=== PATIENT | female | born 1960 | race Hispanic/Latino ===

== ENCOUNTER 2018-06-09 22:57 | Emergency (ER) | payer SELFPAY ==
--- NOTE | 2018-06-09 23:34 | RAD ---
RIGHT WRIST THREE VIEWS: INDICATIONS: Injury. Fall with pain over right wrist. FINDINGS: Slight cortical irregularity is present at the radial styloid, as well as at the distal radial articu lar surface, age indeterminate. Carpal alignment is maintained. No radiopaque foreign bodies. IMPRESSION: Slight cortical irregularity at the distal radius. Recommend clinical correlation. If there is pain in this region, consider CT of right wrist, noncont rast, for further anatomic delineation. POS: [facility]
--- NOTE | 2018-06-10 07:37 | CT ---
CT RIGHT WRIST: INDICATION: Pain, injury. FINDINGS: Subtle fracture deformity of the distal radius underlying the radial styloid is present. This is mor e pronounced at the dorsal aspect of the distal radial metaphyseal region. There is a curvilinear un derlying intramedullary lucency which approximates the articular surface and there is a subtle, minim ally dorsally located. Articular surface step-off of the distal radius approximately 1 mm. Carpal a lignment is maintained. The imaged distal ulna is intact. Mild soft tissue edema about the wrist is present. IMPRESSION: Essentially nondisplaced distal radial fracture with subtle dorsal articular surface involvement. POS: [facility]
== END 2018-06-10 01:06 | disposition home or self-care (01) ==
LOC: ERS 22:57
DX: S52.501A Unspecified fracture of the lower end of right radius, initial encounter for closed fracture (principal); W17.89XA Other fall from one level to another, initial encounter
CPT/HCPCS: 29125

== ENCOUNTER 2018-08-07 08:30 | Outpatient (CLI) | payer OTHER ==
--- NOTE | 2018-08-07 14:51 | MRI ---
MRI RIGHT WRIST WITHOUT CONTRAST: INDICATIONS: History of fall with right wrist pain. FINDINGS: The scapholunate and lunotriquetral ligaments appear intact. The visualized extrinsic ligaments appe ar intact. There has been some interval healing of the nondisplaced, mildly dorsally comminuted dist al radius fracture. Some mild residual edema remains within the metaphyseal region of the dorsal rad ius. Fracture lucency is less well defined than on the comparison CT dated 06/10/2018. The flexor a nd extensor tendons are normal appearing. The median and ulnar neurovasculature appear within normal limits. The scapholunate and lunotriquetral ligaments appear intact. The TFC appears intact. Ther e is a 7 mm synovial cyst involving the volar aspect of the ulnar carpal joint, best seen on image 12 of series 4 and on image 13 of series 8. No definite full-thickness tear is seen involving the TFC. Motion artifact slightly limits image detail. There is mild ulnar minus configuration at the DRUJ. IMPRESSION: 1. Some interval healing of the previously seen distal radius fracture. Some residual edema remains within the bone marrow of the dorsal radius. 2. No additional acute abnormalities seen. The triangular fibrocartilage complex appears intact. T here is mild ulnar minus configuration of the distal radio-ulnar joint. Motion artifact slightly em its image detail. 3. Small, volar synovial cyst involving the capsule of the ulnar carpal joint. POS: [facility]
== END 2018-08-07 08:31 | disposition home or self-care (01) ==
LOC: SCSMRI 08:30
PROVIDERS: ATTEND Orthopaedic Surgery Hand Surgery
DX: S63.8X1A Sprain of other part of right wrist and hand, initial encounter (principal); S69.81XA Other specified injuries of right wrist, hand and finger(s), initial encounter; R60.0 Localized edema; M71.331 Other bursal cyst, right wrist

== ENCOUNTER 2018-11-05 16:59 | Emergency (ER) | payer OTHER ==
[2018-11-05] MEDS ORDERED: HYDROcodone/Acetaminophen 5/325 mg Tablet ONE (17:51)
[2018-11-05] MEDS ORDERED: Ketorolac Tromethamine 30 MG/ML VIAL ONE (17:55)
--- NOTE | 2018-11-05 19:00 | RAD ---
LEFT WRIST RADIOGRAPHS THREE VIEWS: 11/05/18 PROVIDED CLINICAL HISTORY: Left wrist pain status post injury. FINDINGS: Extensively comminuted intra-articular distal radial fracture with mild displacement. Mildly displace d ulnar styloid fracture. No additional fracture is evident. IMPRESSION: Distal left radial and ulnar fractures as above. POS: [facility]
--- NOTE | 2018-11-05 19:03 | RAD ---
TWO VIEWS LEFT FOREARM 11/05/18 PROVIDED CLINICAL HISTORY: Pain status post injury. FINDINGS: Distal radial and ulnar fractures are described on concurrent left wrist series. Please see that repo rt. No additional fracture is evident. IMPRESSION: As above. POS: [facility]
== END 2018-11-05 18:56 | disposition home or self-care (01) ==
LOC: ERS 16:59
DX: S52.572A Other intraarticular fracture of lower end of left radius, initial encounter for closed fracture (principal); S52.612A Displaced fracture of left ulna styloid process, initial encounter for closed fracture; W11.XXXA Fall on and from ladder, initial encounter
CPT/HCPCS: 29125; 96372; J1885

== ENCOUNTER 2018-11-06 12:59 | Emergency (ER) | payer OTHER ==
[2018-11-06] MEDS ORDERED: HYDROcodone/Acetaminophen 5/325 mg Tablet ONE (15:02)
== END 2018-11-06 15:15 | disposition home or self-care (01) ==
LOC: ERS 12:59
DX: S52.572A Other intraarticular fracture of lower end of left radius, initial encounter for closed fracture (principal); S52.612A Displaced fracture of left ulna styloid process, initial encounter for closed fracture; W10.9XXA Fall (on) (from) unspecified stairs and steps, initial encounter
CPT/HCPCS: 99283

== ENCOUNTER 2018-12-15 09:19 | Inpatient (IN) | payer OTHER ==
[2018-12-08 15:28] VITALS: BMI 32.4
[2018-12-15 12:03] LABS: #Basophils 0.1 thou/uL (0.0-0.2); #Eosinphils 0.3 thou/uL (0.0-0.7); #Lymphocytes 1.9 thou/uL (1.20-3.40); #Monocytes 0.4 thou/uL (0.11-0.59); #Neutrophils 4.9 thou/uL (1.40-6.50); %Eosinophils 3.7 % (0.0-10.0); %Lymphocytes 25.4 % (21.0-51.0); %Monocytes 5.7 % (0.0-10.0); %Neutrophils 64.2 % (42.0-75.0); Hemoglobin 14.3 g/dL (12.0-16.0); Mean Corpuscular HGB CONC 31.9 g/dL (32.0-36.0); Mean Corpuscular Volume 97.1 fL (78.0-98.0); Mean Platelet Volume 8.6 fL (7.4-10.4); Platelet Count 329 thou/uL (130-400); RBC Distribution Width 11.6 % (11.5-14.5); Red Blood Cell (RBC) Count 4.63 mill/uL (4.20-5.40); White Blood Cell (WBC) Count 7.6 thou/uL (4.8-10.8)
[2018-12-15 12:24] LABS: Anion Gap 15 mmol/L (10-20); BUN (Urea Nitrogen) 24 mg/dL (9.8-20.1); Calc. Creatinine Clearance 100 mL/min (70-130); Calcium 9.9 mg/dL (7.8-10.44); Carbon Dioxide 21 mmol/L (22-29); Chloride 108 mmol/L (98-107); Estimated GFR-MDRD Greater than 90; Glucose 91 mg/dL (70-105); Potassium 4.7 mmol/L (3.5-5.1); Sodium 139 mmol/L (136-145)
[2018-12-15] MEDS ORDERED: Fentanyl 100 MCG/2 ML VIAL ONE ×5 (12:29→20:50)
[2018-12-15] MEDS ORDERED: Lidocaine 1% PF 5 ML VIAL ONE (14:53)
[2018-12-15] MEDS ORDERED: PROPOFOL 200 MG/20 ML VIAL ONE (14:53)
[2018-12-15] MEDS ORDERED: Dexamethasone 20 MG/5 ML VIAL ONE (14:53)
[2018-12-15] MEDS ORDERED: Ketorolac Tromethamine 30 MG/ML VIAL ONE (14:53)
[2018-12-15] MEDS ORDERED: Ondansetron PF 4 MG/2 ML Vial ONE (14:53)
[2018-12-15] MEDS ORDERED: Bupivacaine PF 0.5% 30 ML VIAL ONE ×2 (16:11→19:45)
[2018-12-15] MEDS ORDERED: Bacitracin Zinc Ointment 30 gm TUBE ONE (16:11)
[2018-12-15] MEDS ORDERED: Midazolam HCl 2 mg/2 ml Vial ONE (16:18)
--- NOTE | 2018-12-15 20:10 | RAD ---
FOUR FLUOROSCOPIC SPOT IMAGES OF THE LEFT WRIST: 12/15/18 INDICATION: ORIF of the left wrist. COMPARISON: Prior exam dated 11/05/18. FINDINGS: Since the comparison examination there has been interval operative fixation of the distal radius and ulnar styloid fractures. Fracture alignment is near anatomic. Instrumentation projects in the expecte d position. IMPRESSION: ORIF of left wrist fractures. POS: [facility]
[2018-12-15] MEDS ORDERED: Ondansetron HCl/PF 4 MG/2 ML Vial IVP PRN (20:22)
[2018-12-15] MEDS ORDERED: Promethazine HCl 25 MG/ML VIAL IM PRN (20:28)
[2018-12-15] MEDS ORDERED: Ondansetron PF 4 MG/2 ML Vial IV PRN (20:28)
[2018-12-15] MEDS ORDERED: Communication Order-Pharmacy FS SCH (20:30)
[2018-12-15] MEDS ORDERED: TETANUS AND DIPHTHERIA TOX/PF 0.5 ML DISP.SYRIN IM SCH (20:30)
[2018-12-15] MEDS ORDERED: Meperidine HCl/PF 25 MG/ML VIAL IM PRN (20:32)
[2018-12-15] MEDS ORDERED: Vancomycin HCl 1 GM in Premix Bag 1 BAG IVPB SCH (21:00)
[2018-12-15] MEDS: Ketorolac Tromethamine 30 MG/ML VIAL IVP SCH (23:14)
[2018-12-15] MEDS: Vancomycin HCl 750 MG in Sodium Chloride 0.9% 250 ML 250 ML IVPB SCH (23:14)
[2018-12-15] MEDS: Aspirin 81 mg Enteric Coated Tablet PO SCH (23:14)
[2018-12-15] MEDS: Acetaminophen 325 MG TAB PO PRN (23:17)
[2018-12-15] MEDS: traMADol HCl 50 MG TAB PO PRN (23:17)
[2018-12-16] MEDS: Ketorolac Tromethamine 30 MG/ML VIAL IVP SCH ×3 (05:46→17:47)
[2018-12-16] MEDS: traMADol HCl 50 MG TAB PO PRN ×3 (05:47→16:31)
[2018-12-16] MEDS: Acetaminophen 325 MG TAB PO PRN ×2 (05:47→14:20)
[2018-12-16 06:45] LABS: #Lymphocytes 1.3 thou/uL (1.20-3.40); #Monocytes 0.6 thou/uL (0.11-0.59); #Neutrophils 10.4 thou/uL (1.40-6.50); %Eosinophils 0.4 % (0.0-10.0); %Lymphocytes 10.2 % (21.0-51.0); %Monocytes 4.9 % (0.0-10.0); %Neutrophils 84.5 % (42.0-75.0); Hemoglobin 12.3 g/dL (12.0-16.0); Mean Corpuscular HGB CONC 32.9 g/dL (32.0-36.0); Mean Corpuscular Hemoglobin 30.6 pg (27.0-31.0); Mean Corpuscular Volume 92.8 fL (78.0-98.0); Mean Platelet Volume 9.9 fL (7.4-10.4); Platelet Count 207 thou/uL (130-400); RBC Distribution Width 11.2 % (11.5-14.5); Red Blood Cell (RBC) Count 4.02 mill/uL (4.20-5.40); White Blood Cell (WBC) Count 12.3 thou/uL (4.8-10.8)
[2018-12-16] MEDS: Aspirin 81 mg Enteric Coated Tablet PO SCH ×2 (09:49→20:09)
[2018-12-16] MEDS: Vancomycin HCl 750 MG in Sodium Chloride 0.9% 250 ML 250 ML IVPB SCH (12:20)
[2018-12-17] MEDS: Vancomycin HCl 750 MG in Sodium Chloride 0.9% 250 ML 250 ML IVPB SCH ×2 (00:40→13:24)
[2018-12-17] MEDS: Ketorolac Tromethamine 30 MG/ML VIAL IVP SCH (00:41)
[2018-12-17] MEDS: traMADol HCl 50 MG TAB PO PRN (07:16)
[2018-12-17] MEDS: Aspirin 81 mg Enteric Coated Tablet PO SCH ×2 (08:38→20:43)
[2018-12-17 10:10] LABS: #Basophils 0.1 thou/uL (0.0-0.2); #Eosinphils 0.2 thou/uL (0.0-0.7); #Lymphocytes 1.8 thou/uL (1.20-3.40); #Monocytes 0.4 thou/uL (0.11-0.59); #Neutrophils 4.8 thou/uL (1.40-6.50); %Basophils 0.7 % (0.0-1.0); %Eosinophils 2.6 % (0.0-10.0); %Lymphocytes 24.2 % (21.0-51.0); %Monocytes 6.1 % (0.0-10.0); %Neutrophils 66.4 % (42.0-75.0); Hemoglobin 12.7 g/dL (12.0-16.0); Mean Corpuscular HGB CONC 33.2 g/dL (32.0-36.0); Mean Corpuscular Hemoglobin 31.4 pg (27.0-31.0); Mean Corpuscular Volume 94.7 fL (78.0-98.0); Mean Platelet Volume 8.4 fL (7.4-10.4); Platelet Count 258 thou/uL (130-400); RBC Distribution Width 11.2 % (11.5-14.5); Red Blood Cell (RBC) Count 4.05 mill/uL (4.20-5.40); White Blood Cell (WBC) Count 7.3 thou/uL (4.8-10.8)
[2018-12-17 12:06] LABS: Vancomycin, Trough 8.5 ug/mL
[2018-12-17] MEDS ORDERED: Vancomycin HCl 1 GM in Premix Bag 1 BAG IVPB SCH (13:00)
[2018-12-17] MEDS: Acetaminophen 325 MG TAB PO PRN (13:43)
[2018-12-17] MEDS ORDERED: Promethazine HCl 25 MG/ML VIAL IM PRN (18:48)
[2018-12-17] MEDS ORDERED: traMADol HCl 50 MG TAB PO PRN (18:49)
[2018-12-17] MEDS: Pregabalin 50 MG CAP PO SCH (20:43)
[2018-12-17] MEDS: Sulfameth/Trimethoprim DS 800-160mg TAB PO SCH (20:44)
[2018-12-18] MEDS: Acetaminophen 325 MG TAB PO PRN (05:23)
[2018-12-18] MEDS: Aspirin 81 mg Enteric Coated Tablet PO SCH (08:57)
[2018-12-18] MEDS: Sulfameth/Trimethoprim DS 800-160mg TAB PO SCH (08:58)
[2018-12-18] MEDS: Pregabalin 50 MG CAP PO SCH (08:58)
[2018-12-18] MEDS ORDERED: Ondansetron ODT 4 MG TAB PO PRN (11:31)
[2018-12-18 15:32] VITALS: BP 159/76; TEMP 98.2
--- NOTE | 2018-12-21 09:16 | OP ---
DATE OF PROCEDURE: 12/15/2018 PREOPERATIVE DIAGNOSES: 1. Median nerve compression at the wrist with carpal tunnel symptoms. 2. Distal radius fracture, displaced. 3. Ulnar styloid fracture, displaced. FINDINGS: 1. Hematoma with a median nerve contusion in the proximal aspect of the carpal tunnel. 2. Displaced distal radius fracture with moderate amount of osteoporosis. 3. Ulnar styloid fracture displaced with triangular fibrocartilage attached to it, through type 3 base of the styloid fracture. PROCEDURES PERFORMED: 1. Open reduction, internal fixation of distal radius fracture, four parts. 2. Open reduction, internal fixation of left ulnar styloid fracture. 3. Forearm level median nerve neuroplasty. 4. Carpal tunnel release with median nerve neuroplasty at the wrist. TOURNIQUET TIME: 115 minutes. ESTIMATED BLOOD LOSS: 20 mL. DESCRIPTION OF PROCEDURE: After successful general anesthesia, the limb was prepped and draped. Time-out done appropriately. C-arm brought into the field. We identified the fracture and then limb was exsanguinated after time-out and the tourniquet inflated to 250 mmHg pressure. We then performed a standard zigzag incision over the flexor carpi radialis identify the fracture. We then went slightly ulnar to this and identified the median nerve in the entire area of the fracture, both 10 cm proximal and then we had an area of 2 cm with no incision beginning at the palmar flexion crease. We distally performed open carpal tunnel release by dissecting through transverse carpal ligament until we could visualize the median nerve. In the proximal aspect of the wrist incision, palmar, distal aspect of the forearm, there was a hematoma around the median nerve. The hematoma was then evacuated. There was only a small amount. Transcarpal ligament released completely. Now, we had freed the median nerve completely in the forearm and the wrist/hand. We turned attention back to the fracture, and performed a reduction where we elevated the fragment approximately 1 to 2 mm, and closed the intra-articular gap, and corrected the angulation sagittal plane to make it approximately 10 degrees palmar tilt. We then placed two K-wires from the styloid proximally, held this position. We brought into the field with Synthes distal radius fracture set, selected a four hole subarticular and four hole down the shaft plate because the fracture line extended approximately 2.5 cm proximally. We then placed this in with 4 screws distally to subarticular first, elevating the plate slightly and this allowed us to place additional 5 to 6 degrees of palmar tilt. Once we had done this and placed screws in the shaft, we checked position and was anatomical. We had restored 1.5 mm ulnar negative wrist where was preop ulnar positive. The fracture of the ulna even corrected by 50%. I released the tourniquet. We then noticed however that she has moderate osteoporosis and had to use locking screws distally. The patient had screw length confirmed to be adequate, the fracture was stable, and released the tourniquet for this part and we did not release the tourniquet initially for this closure of pronator interval with 2-0 Vicryl. We then made a midline incision over the ulna, carried through skin and subcutaneous tissue and identified the fracture. We saw this on the triangular fibrocartilage still on it, so we debrided the fracture, reduced it, and placed a [id number] heavy suture in the bone to hold it in position. We then placed Synthes low-profile ulna styloid plate with hook. Hook was buried and held it in position, we placed four screws in a standard drill measure in screw technique in the direct lateral plane. Radiographs confirmed near anatomic position for all fractures. The joint was well restored. We maintained distal ulnar joint with. We deflated the tourniquet. We closed distal radius wound with a running 4-0 Monocryl for deep dermis, subcutaneous and then epidermis/cutaneous with 4-0 nylon interrupted mattress pattern. We used 0 Vicryl to the fascia of the ulna in a running fashion, 4-0 Monocryl for subcutaneous deep dermal closure in a running fashion and interrupted simple, 4-0 nylon for the epidermal closure. The patient had a bulky dressing applied, a sugar-tong splint, left the operating room without evidence of anesthetic operative complication. Job ID: [id number]
== END 2018-12-18 16:52 | disposition home or self-care (01) | DRG 512 ==
LOC: SDC 09:19 → SURG B 20:28
PROVIDERS: ADMIT Orthopaedic Surgery Hand Surgery; ATTEND Orthopaedic Surgery Hand Surgery
PROC: 0PSJ04Z Reposition Left Radius with Internal Fixation Device, Open Approach (ICD-10-PCS; principal; 2018-12-15)
PROC: 0PSL04Z Reposition Left Ulna with Internal Fixation Device, Open Approach (ICD-10-PCS; 2018-12-15)
PROC: 01N50ZZ Release Median Nerve, Open Approach (ICD-10-PCS; 2018-12-15)
DX: S52.572A Other intraarticular fracture of lower end of left radius, initial encounter for closed fracture (principal); S52.612A Displaced fracture of left ulna styloid process, initial encounter for closed fracture; G56.02 Carpal tunnel syndrome, left upper limb; G89.18 Other acute postprocedural pain; M81.0 Age-related osteoporosis without current pathological fracture; W11.XXXA Fall on and from ladder, initial encounter; Y99.0 Civilian activity done for income or pay
CPT/HCPCS: 36415; 76000; 80048; 80202; 85025; C1713; J1100; J1885; J2001; J2175; J2250; J2405; J2704; J3010; J3370; J7050; Q0162; S0020

== ENCOUNTER 2019-02-11 07:44 | Outpatient (CLI) | payer OTHER ==
--- NOTE | 2019-02-11 09:21 | MRI ---
MRI LEFT SHOULDER: Date: 02/11/19 PROVIDED CLINICAL HISTORY: Shoulder pain. FINDINGS: There are several small foci of low grade partial thickness articular surface tearing involving the s upraspinatus tendon approximately 2.0 cm from the footplate. The components of the rotator cuff appea r otherwise intact. The long head biceps tendon appears intact and normally located. The glenoid labrum and glenohumeral articular cartilage are suboptimally evaluated in the absence of joint distention, but appear grossly normal. Acromioclavicular joint osteoarthrosis is demonstrated without significant mass effect upon the subja cent supraspinatus. Rotator cuff muscular volume appears preserved. No focal concerning regional uche ow or muscular signal abnormality is evident. There is a physiologic amount of fluid within the gleno humeral joint. There is a physiologic amount of subacromial subdeltoid bursal fluid. There is a mildl y indistinct and T2 hyperintense appearance to the inferior glenohumeral ligament. IMPRESSION: 1. Several small foci of low grade partial thickness undersurface tearing involving the supraspinatu s tendon. 2. Mildly thickened and T2 hyperintensity inferior glenohumeral ligament, which may reflect changes of adhesive capsulitis. 3. Mild acromioclavicular joint osteoarthrosis. POS: [facility]
--- NOTE | 2019-02-11 09:26 | MRI ---
MRI OF THE RIGHT SHOULDER: Date: 02-11-19 History: Right shoulder pain. FINDINGS: There is low grade partial thickness interstitial tearing involving the distal conjoined tendon near the foot plate. The component of the rotator cuff appear otherwise intact. The long-head biceps tendo n appears intact and normally located. The amount of fluid within the glenohumeral joint appears physiologic. The glenoid labrum and glenohu meral articular cartilage are suboptimally evaluated in the absence of joint distention but appear gr ossly normal. The amount of fluid within the subacromial subdeltoid bursa appears physiologic. Acromioclavicular daniel int osteoarthrosis is demonstrated with mild mass effect upon the subjacent supraspinatus. No focal concerning regional marrow or muscular signal abnormality is evident. IMPRESSION: 1. Low grade partial thickness interstitial tear involving the distal conjoined tendon. 2. Acromioclavicular joint osteoarthrosis. POS: [facility]
== END 2019-02-11 07:45 | disposition home or self-care (01) ==
LOC: BICMRI 07:44
PROVIDERS: ATTEND Orthopaedic Surgery Hand Surgery
DX: S46.012A Strain of muscle(s) and tendon(s) of the rotator cuff of left shoulder, initial encounter (principal); S46.011A Strain of muscle(s) and tendon(s) of the rotator cuff of right shoulder, initial encounter; M19.012 Primary osteoarthritis, left shoulder; M19.011 Primary osteoarthritis, right shoulder

== ENCOUNTER 2024-08-30 08:25 | Outpatient (CLI) | payer MEDICARE, MEDICAID | END 2024-08-30 08:26 | disposition home or self-care (01) | LOC: BICMAMMO 08:25 | PROVIDERS: ATTEND Nurse Practitioner Family | DX: Z78.0 Asymptomatic menopausal state (principal); M81.0 Age-related osteoporosis without current pathological fracture; M85.851 Other specified disorders of bone density and structure, right thigh; M85.852 Other specified disorders of bone density and structure, left thigh | CPT/HCPCS: 77080 ==

== ENCOUNTER 2024-10-06 13:19 | Outpatient (CLI) | payer MEDICARE, MEDICAID | END 2024-10-06 13:20 | disposition home or self-care (01) | LOC: BICRAD 13:19 | PROVIDERS: ATTEND Nurse Practitioner Family | DX: M54.42 Lumbago with sciatica, left side (principal); M47.816 Spondylosis without myelopathy or radiculopathy, lumbar region | CPT/HCPCS: 72100 ==